=== PATIENT | female | born 1955 | race Caucasian/White ===

== ENCOUNTER 2018-05-01 14:50 | Emergency (ER) | payer OTHER ==
--- NOTE | 2018-05-01 15:52 | RAD REPORT ---
EXAM DESCRIPTION: RAD - Knee Left 3 View - 05/01/2018 3:26 pm CLINICAL HISTORY: Slip and fall, knee pain COMPARISON: None. FINDINGS: Femur, tibia and fibula are intact. Patient has minimal underlying knee degenerative freeman e. Comminuted patella fracture is present. Fracture is seen has primarily a transverse fracture in the m idportion of the patella. Multiple small fractures is seen along the distal fracture fragment.There i s 3 cm of distraction along the fracture site. Prominent surrounding soft tissue swelling is present along with joint effusion. IMPRESSION: Comminuted patella fracture as detailed. There is 3 cm of distraction between the fractu re fragments.
[2018-05-01] MEDS ORDERED: ONDANSETRON 4 MG/2 ML VIAL ONE (15:55)
[2018-05-01] MEDS ORDERED: MORPHINE 4 MG/ML SYR ONE (15:55)
--- NOTE | 2018-05-01 16:03 | ER ---
Nurse's Notes [facility] Name: Cecilia Gomez Age: 62 yrs Sex: Female : 1955 Arrival Date: 05/01/2018 Time: 14:52 Bed 17 Private MD: Diagnosis: Displaced comminuted fracture of left patella Presentation: 05/01 14:53 Presenting complaint: EMS states: Slipped while ambulating in hallway at work, landed hb on left knee, c/o pain 03/15. Transition of care: patient was not received from another setting of care. Onset of symptoms was May 01, 2018. Risk Assessment: Do you want to hurt yourself or someone else? Patient reports no desire to harm self or others. Initial Sepsis Screen: Does the patient meet any 2 criteria? No. Patient's initial sepsis screen is negative. Does the patient have a suspected source of infection? No. Patient's initial sepsis screen is negative. Care prior to arrival: Medication(s) given: Fentanyl 100 mcg IVP, Toradol 15 mg IVP, Zofran 4 mg IVP IV initiated. 20 GA, in the right antecubital area. 14:53 Method Of Arrival: EMS: [facility] hb 14:53 Acuity: ANSLEY 4 hb Historical: - Allergies: 14:56 No Known Allergies; hb - Home Meds: 14:56 Ambien 5 mg Oral tab 1 tab once daily [Active]; hb - PMHx: 14:56 None; hb - PSHx: 14:56 None; hb - Immunization history:: Adult Immunizations up to date. - Social history:: Smoking status: Patient/guardian denies using tobacco. - Ebola Screening: : No symptoms or risks identified at this time. - Family history:: not pertinent. - Hospitalizations: : No recent hospitalization is reported. Screenin:56 Abuse screen: Denies threats or abuse. Denies injuries from another. Nutritional hb screening: No deficits noted. Tuberculosis screening: No symptoms or risk factors identified. Fall Risk Total Suh Fall Scale indicates Low Risk Score (25-44 pts). Fall prevention measures have been instituted. Side Rails Up X 2 Frequent Obs/Assesments occuring As available Patient and Family Educated on Fall Prevention Program and strategies. Assessment: 14:55 General: Appears in no apparent distress. well groomed, Behavior is calm, cooperative, tw2 appropriate for age. Pain: Complains of pain in left knee. Neuro: Level of Consciousness is awake, alert, obeys commands, Oriented to person, place, time, situation. Cardiovascular: Capillary refill < 3 seconds Patient's skin is warm and dry. Respiratory: Airway is patent Respiratory effort is even, unlabored, Respiratory pattern is regular, symmetrical, Breath sounds are clear bilaterally. GI: No signs and/or symptoms were reported involving the gastrointestinal system. : No signs and/or symptoms were reported regarding the genitourinary system. Musculoskeletal: Circulation, motion, and sensation intact. Swelling present in left knee. 15:55 Reassessment: Patient appears in no apparent distress at this time. Patient and/or tw2 family updated on plan of care and expected duration. Pain level reassessed. Patient is alert, oriented x 3, equal unlabored respirations, skin warm/dry/pink. 16:45 Reassessment: Patient appears in no apparent distress at this time. Patient and/or tw2 family updated on plan of care and expected duration. Pain level reassessed. Patient is alert, oriented x 3, equal unlabored respirations, skin warm/dry/pink. Vital Signs: 14:50 BP 146 / 76; Pulse 76; Resp 15; Temp 98.1; Pulse Ox 100% on R/A; Pain 3/10; hb 15:54 BP 146 / 79; Pulse 82; Resp 17; Pulse Ox 100% on R/A; tw2 ED Course: 14:52 Patient arrived in ED. hb 14:53 Bed in low position. Call light in reach. Side rails up X2. Pulse ox on. NIBP on. tw2 14:54 Triage completed. hb 14:55 Arm band placed on left wrist. hb 15:01 Saeid Estrella MD is Attending Physician. rn 15:39 XRAY Knee LEFT 3 view In Process Unspecified. EDMS 15:44 Nory Hendricks, BJ is Primary Nurse. tw2 16:02 Amandeep Collazo MD is Referral Physician. rn 16:45 No provider procedures requiring assistance completed. IV discontinued, intact, tw2 bleeding controlled, No redness/swelling at site. Pressure dressing applied. Administered Medications: 15:52 Drug: Zofran 4 mg Route: IVP; Site: right antecubital; tw2 16:15 Follow up: Response: No adverse reaction tw2 15:54 Drug: morphine 4 mg Route: IVP; Site: right antecubital; tw2 16:16 Follow up: Response: No adverse reaction tw2 Outcome: 16:02 Discharge ordered by . rn 16:44 Patient left the ED. tw2 16:45 Discharged to home ambulatory. tw2 16:45 Condition: stable 16:45 Discharge instructions given to patient, Instructed on discharge instructions, follow up and referral plans. medication usage, Demonstrated understanding of instructions, follow-up care, medications, Prescriptions given X 1. Signatures: Dispatcher [employer] EDME Saeid Estrella MD MD rn Baxter, Heather, RN RN Nory Hendricks RN RN tw2
--- NOTE | 2018-05-01 16:03 | EDPHYS ---
Physician Documentation [facility] Name: Cecilia Gomez Age: 62 yrs Sex: Female : 1955 Arrival Date: 05/01/2018 Time: 14:52 Bed 17 Private MD: ED Physician Saeid Estrella HPI: 05/01 15:59 This 62 yrs old Female presents to ER via EMS with complaints of Knee Injury. rn 15:59 The patient presents with decreased range of motion, a deformity, an injury, pain. The rn complaints affect the left knee. Onset: The symptoms/episode began/occurred just prior to arrival. Severity of symptoms: At their worst the symptoms were moderate, in the emergency department the symptoms have improved. The patient has not recently seen a physician. Fall from standing onto left knee. UNable to get up afterward.. Historical: - Allergies: 14:56 No Known Allergies; hb - Home Meds: 14:56 Ambien 5 mg Oral tab 1 tab once daily [Active]; hb - PMHx: 14:56 None; hb - PSHx: 14:56 None; hb - Immunization history:: Adult Immunizations up to date. - Social history:: Smoking status: Patient/guardian denies using tobacco. - Ebola Screening: : No symptoms or risks identified at this time. - Family history:: not pertinent. - Hospitalizations: : No recent hospitalization is reported. ROS: 15:59 Constitutional: Negative for fever, chills, and weight loss, Neck: Negative for injury, rn pain, and swelling, Cardiovascular: Negative for chest pain, palpitations, and edema, Back: Negative for injury and pain, MS/Extremity: + left knee injury Skin: Negative for injury, rash, and discoloration, Neuro: Negative for headache, weakness, numbness, tingling, and seizure. Exam: 15:59 Constitutional: This is a well developed, well nourished patient who is awake, alert, rn and in no acute distress. MS/ Extremity: Pulses equal, no cyanosis. Neurovascular intact. + left knee swelling and ecchymosis, with loss of extensor mechanism, no open wounds. Neuro: Awake and alert, GCS 15, oriented to person, place, time, and situation. Motor strength 5/5 in all extremities. Sensory grossly intact. Vital Signs: 14:50 BP 146 / 76; Pulse 76; Resp 15; Temp 98.1; Pulse Ox 100% on R/A; Pain 3/10; hb 15:54 BP 146 / 79; Pulse 82; Resp 17; Pulse Ox 100% on R/A; tw2 MDM: 15:01 Patient medically screened. rn 15:59 Differential diagnosis: closed fracture, contusion. Data reviewed: vital signs, nurses rn notes, radiologic studies, plain films, and as a result, I will discharge patient. Counseling: I had a detailed discussion with the patient and/or guardian regarding: the historical points, exam findings, and any diagnostic results supporting the discharge/admit diagnosis, radiology results, the need for outpatient follow up, to return to the emergency department if symptoms worsen or persist or if there are any questions or concerns that arise at home. ED course: Consulted with Dr. Collazo, requests knee immobilizer and dc home with f/u for elective surgery. Pt states lives in [place] and wants to f/u over there if she can, Dr. Delatorre info placed in chart . 05/01 15:06 Order name: XRAY Knee LEFT 3 view; Complete Time: 15:59 rn 05/01 15:44 Order name: Knee Immobilizer; Complete Time: 16:03 hb Administered Medications: 15:52 Drug: Zofran 4 mg Route: IVP; Site: right antecubital; tw2 16:15 Follow up: Response: No adverse reaction tw2 15:54 Drug: morphine 4 mg Route: IVP; Site: right antecubital; tw2 16:16 Follow up: Response: No adverse reaction tw2 Disposition: 05/01/18 16:02 Discharged to Home. Impression: Displaced comminuted fracture of left patella. - Condition is Stable. - Discharge Instructions: Knee Immobilizer, Patellar Fracture, Adult. - Prescriptions for Tylenol- Codeine #3 300-30 mg Oral Tablet - take 2 tablet by ORAL route every 6 hours As needed; 30 tablet. - Medication Reconciliation Form, Thank You Letter, Antibiotic Education, Prescription Opioid Use, Work release form form. - Follow up: Amandeep Collazo MD; When: 5 - 6 days; Reason: Recheck today's complaints, Re-evaluation by your physician. - Problem is new. - Symptoms have improved. Signatures: Dispatcher [employer] EDMS EstrellaSaeid MD MD rn Baxter, Heather, RN RN Nory Hendricks RN RN tw2 Corrections: (The following items were deleted from the chart) 16:44 16:02 05/01/2018 16:02 Discharged to Home. Impression: Displaced comminuted fracture of tw2 left patella. Condition is Stable. Forms are Medication Reconciliation Form, Thank You Letter, Antibiotic Education, Prescription Opioid Use. Follow up: Amandeep Collazo; When: 5 - 6 days; Reason: Recheck today's complaints, Re-evaluation by your physician. Problem is new. Symptoms have improved. rn
== END 2018-05-01 16:44 | disposition home or self-care (01) ==
LOC: ER 14:50
DX: S82.042A Displaced comminuted fracture of left patella, initial encounter for closed fracture (principal); W01.0XXA Fall on same level from slipping, tripping and stumbling without subsequent striking against object, initial encounter; Y92.89 Other specified places as the place of occurrence of the external cause; Y99.0 Civilian activity done for income or pay
CPT/HCPCS: 96374; 96375; 99284; J2405